=== PATIENT | female | born 1980 | race American Indian/Alaskan Native ===

== ENCOUNTER 2017-09-23 22:13 | Emergency (ER) | payer MEDICAID ==
[~2017-09-23] VITALS: Ht 160 cm; Wt 75.0 kg
[~2017-09-23 22:13] MED LIST: HYDR-569 PO
[2017-09-23] MEDS ORDERED: LIDOcaine 1.5% w/epinephrine 1:200,000 5ml ampul IJ ONE (22:55)
[2017-09-23] MEDS ORDERED: sulfamethoxazole/trimethoprim DS (800/160mg) tablet PO ONE (23:05)
[2017-09-23] MEDS ORDERED: BACDS PO (23:06)
[2017-09-23 23:27] VITALS: BP 169/102
== END 2017-09-23 23:28 | disposition home or self-care (01) ==
LOC: ER 22:13
DX: L02.412 Cutaneous abscess of left axilla (principal); F17.200 Nicotine dependence, unspecified, uncomplicated; F15.10 Other stimulant abuse, uncomplicated; Z86.14 Personal history of Methicillin resistant Staphylococcus aureus infection; Z86.19 Personal history of other infectious and parasitic diseases; Z88.0 Allergy status to penicillin; Z88.1 Allergy status to other antibiotic agents; Z88.5 Allergy status to narcotic agent; Z88.8 Allergy status to other drugs, medicaments and biological substances; Z79.899 Other long term (current) drug therapy
CPT/HCPCS: 99283; A6266; A6449; J3490

== ENCOUNTER 2017-10-27 01:37 | Emergency (ER) | payer MEDICAID ==
[~2017-10-27] VITALS: Ht 160 cm; Wt 86.4 kg
[2017-10-27 01:43] VITALS: BP 150/95
[2017-10-27] MEDS ORDERED: IBUP-1986 PO (02:01)
[2017-10-27] MEDS ORDERED: SULF1TAB49 PO (02:01)
[2017-10-27] MEDS ORDERED: sulfamethoxazole/trimethoprim DS (800/160mg) tablet PO ONE (02:35)
== END 2017-10-27 02:44 | disposition home or self-care (01) ==
LOC: ER 01:37
DX: L03.211 Cellulitis of face (principal); F15.10 Other stimulant abuse, uncomplicated; Z86.19 Personal history of other infectious and parasitic diseases; Z86.14 Personal history of Methicillin resistant Staphylococcus aureus infection; Z88.0 Allergy status to penicillin; Z88.1 Allergy status to other antibiotic agents; Z88.6 Allergy status to analgesic agent; Z88.5 Allergy status to narcotic agent; Z79.899 Other long term (current) drug therapy
CPT/HCPCS: 99283

== ENCOUNTER 2017-10-30 04:51 | Emergency (ER) | payer MEDICAID ==
[~2017-10-30] VITALS: Ht 160 cm; Wt 84.0 kg
[~2017-10-30 04:51] MED LIST changes: +IBUP-1986 PO; +SULF1TAB49 PO
[2017-10-30 04:53] VITALS: BP 142/100
[2017-10-31] MEDS ORDERED: ACYC400T PO (01:02)
== END 2017-10-30 08:00 | disposition left against medical advice (07) ==
LOC: ER 04:51
DX: L02.01 Cutaneous abscess of face (principal); Z53.21 Procedure and treatment not carried out due to patient leaving prior to being seen by health care provider
CPT/HCPCS: J7030

== ENCOUNTER 2017-10-30 23:03 | Emergency (ER) | payer MEDICAID ==
[~2017-10-30] VITALS: Ht 160 cm; Wt 82.8 kg
[2017-10-30] MEDS ORDERED: LIDOcaine 1% 30ml preserv. free vial IJ ONE (23:55)
[2017-10-31] MEDS ORDERED: ibuprofen tablet 400 MG TABLET PO ONE
[2017-10-31] MEDS ORDERED: LORazepam 1 MG tablet PO ONE
[2017-10-31] MEDS ORDERED: clindamycin 600mg/D5W 50ml 50 ML IV ONE (00:30)
[2017-10-31] MEDS ORDERED: ACYC400T PO (01:02)
[2017-10-31 01:38] VITALS: BP 136/86
== END 2017-10-31 01:40 | disposition home or self-care (01) ==
LOC: ER 23:04
DX: K12.2 Cellulitis and abscess of mouth (principal); F15.10 Other stimulant abuse, uncomplicated; Z86.19 Personal history of other infectious and parasitic diseases; Z86.14 Personal history of Methicillin resistant Staphylococcus aureus infection; Z88.0 Allergy status to penicillin; Z88.5 Allergy status to narcotic agent; Z88.8 Allergy status to other drugs, medicaments and biological substances; Z79.899 Other long term (current) drug therapy
CPT/HCPCS: 70250; 99284; A6449; J3490

== ENCOUNTER 2018-09-10 21:40 | Emergency (ER) | payer MEDICAID ==
[~2018-09-10] VITALS: Ht 160 cm; Wt 100.0 kg
[~2018-09-10 21:40] MED LIST changes: +HYDR-4383 PO; -HYDR-569 PO; -SULF1TAB49 PO
[2018-09-10 21:56] VITALS: BP 161/85
[2018-09-10] MEDS ORDERED: oseltamivir phos 75mg capsule PO ONE (23:45)
[2018-09-10] MEDS ORDERED: naproxen 500mg tablet PO ONE (23:45)
[2018-09-10] MEDS ORDERED: diphenhydrAMINE 25 MG/10 ML UD oral solution PO ONE (23:45)
[2018-09-10] MEDS ORDERED: TAM75C PO (23:46)
== END 2018-09-11 00:08 | disposition home or self-care (01) ==
LOC: ER 21:41
DX: J11.1 Influenza due to unidentified influenza virus with other respiratory manifestations (principal); F15.90 Other stimulant use, unspecified, uncomplicated; Z98.890 Other specified postprocedural states; Z98.51 Tubal ligation status; Z86.14 Personal history of Methicillin resistant Staphylococcus aureus infection; Z88.1 Allergy status to other antibiotic agents; Z88.0 Allergy status to penicillin; Z88.5 Allergy status to narcotic agent
CPT/HCPCS: 36415; 99284; Q0163

== ENCOUNTER 2021-12-19 04:44 | Emergency (ER) | payer MEDICAID ==
[~2021-12-19] VITALS: Ht 170.2 cm; Wt 90.9 kg
[2021-12-19] MEDS ORDERED: magnesium hydroxide 30ml (MOM) UD suspension PO ONE (04:55)
[2021-12-19] MEDS ORDERED: acetaminophen 325mg tablet PO ONE (04:55)
== END 2021-12-19 05:35 | disposition home or self-care (01) ==
LOC: ER 04:45
DX: T65.891A Toxic effect of other specified substances, accidental (unintentional), initial encounter (principal); L23.89 Allergic contact dermatitis due to other agents; F15.10 Other stimulant abuse, uncomplicated; Z86.14 Personal history of Methicillin resistant Staphylococcus aureus infection; Y92.89 Other specified places as the place of occurrence of the external cause; Z88.0 Allergy status to penicillin; Z88.1 Allergy status to other antibiotic agents; Z88.5 Allergy status to narcotic agent
CPT/HCPCS: 99283

== ENCOUNTER 2022-10-01 23:49 | Emergency (ER) | payer MEDICAID ==
--- NOTE | 2022-10-02 00:12 | NUR ---
WENT TO CALL PATIENT INTO TRIAGE WHEN SECURITY WAS SPEAKING WITH PT.'S SPOUSE AND REQUESTING THAT HE TURN OVER THE KNIFE THAT HE WAS CARRYING. SPOUSE TURNED IT OVER TO SECURITY AND CONT'D TO BE CONFRONTATIONAL. PT. AND SPOUSE DECIDED TO LEASVE AND KNIFE WAS GIVEN BACK, ESCORTED OUT BY SECURITY.
== END 2022-10-02 00:16 | disposition left against medical advice (07) ==
LOC: ER 23:49
DX: M79.606 Pain in leg, unspecified (principal); Z53.21 Procedure and treatment not carried out due to patient leaving prior to being seen by health care provider